=== PATIENT | female | born 1950 | race Caucasian/White ===

== ENCOUNTER → 2018-06-05 | Outpatient (CLI) | payer MEDICARE, OTHER ==
[~2018-06-05] MED LIST: CIPRO 500MG TA500 MG; NORCO 325 MG-51 TAB PO; PRILOSEC 20MG20 MG PO; SYNTHROID0.075 MG/T PO; WOMEN'S DAILY F1 TAB PO
== END ==
LOC: MC.RAD 05-22 09:00
DX: Z12.31 Encounter for screening mammogram for malignant neoplasm of breast (principal)

== ENCOUNTER → 2019-07-09 | Outpatient (CLI) | payer MEDICARE, OTHER | LOC: MC.RAD 09:54 | DX: Z12.31 Encounter for screening mammogram for malignant neoplasm of breast (principal) ==

== ENCOUNTER → 2020-04-20 | Outpatient (CLI) | payer MEDICARE, OTHER | LOC: ZCOL.LAB 16:29 | DX: Z20.828 Contact with and (suspected) exposure to other viral communicable diseases (principal) ==

== ENCOUNTER → 2020-07-12 | Outpatient (CLI) | payer MEDICARE, OTHER | LOC: MC.RAD 08:15 | DX: Z12.31 Encounter for screening mammogram for malignant neoplasm of breast (principal) ==

== ENCOUNTER → 2021-07-12 | Outpatient (CLI) | payer MEDICARE, OTHER | LOC: MC.RAD 10:30 | DX: N60.21 Fibroadenosis of right breast (principal) ==

== ENCOUNTER → 2024-03-12 | Outpatient (CLI) | payer MEDICARE ==
[~2024-03-12] MED LIST changes: +Triamcinolone 40 MG/ML 1 ML VIAL IJ SCH
== END ==
LOC: COL.RAD 06:36
DX: M46.1 Sacroiliitis, not elsewhere classified (principal)
CPT/HCPCS: G0260; J0665; J3301

== ENCOUNTER → 2024-05-14 | Outpatient (CLI) | payer MEDICARE ==
[~2024-05-14] VITALS: Ht 167.6 cm; Wt 62.0 kg
[~2024-05-14] MED LIST changes: +CITRACAL + D CA1 TAB PO; +LUMIGAN 2.5 ML2.5 M1 OP; +SYNTHROID0.05 MG/TA PO; +TIMOLOL MALEATE5 M1 OP
[2024-05-14 13:22] VITALS: BP 190/83; PULSE 64; TEMP 98
[2024-05-14 14:05] VITALS: BP 180/93; PULSE 62
== END ==
LOC: COL.RAD 13:05
DX: M48.061 Spinal stenosis, lumbar region without neurogenic claudication (principal)
CPT/HCPCS: J0665; J3301

== ENCOUNTER → 2024-07-09 | Outpatient (CLI) | payer MEDICARE ==
[~2024-07-09] MED LIST changes: -Triamcinolone 40 MG/ML 1 ML VIAL IJ SCH
== END ==
LOC: MC.RAD 13:59
DX: Z12.31 Encounter for screening mammogram for malignant neoplasm of breast (principal); R92.2 Inconclusive mammogram; Z80.3 Family history of malignant neoplasm of breast